=== PATIENT | male | born 1980 | race African-American/Black ===

== ENCOUNTER 2022-08-09 10:16 | Outpatient (CLI) | payer OTHER, SELFPAY ==
--- NOTE | ~2022-08-09 | XR_ITS ---
EXAMINATION: XR hand RT 2V INDICATION: Right hand pain TECHNIQUE: Two views of the right hand are obtained. COMPARISON: None available FINDINGS: Bone alignment is normal. There is no fracture. There is soft tissue swelling of the third finger. 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 IMPRESSION: 1. Mild soft tissue swelling of the third finger without acute osseous abnormality. Reviewed, dictated and finalized at location L. IMPRESSION: 1. Mild soft tissue swelling of the third finger without acute osseous abnormal ity.
== END 2022-08-09 10:17 ==
DX: M79.89 Other specified soft tissue disorders (principal)
CPT/HCPCS: 73120